=== PATIENT | male | born 1990 | race Caucasian/White ===

== ENCOUNTER 2017-02-09 08:41 | Inpatient (IN) | payer BC ==
[~2017-02-09] VITALS: Ht 180.3 cm; Wt 136.1 kg
[2017-02-09] MEDS ORDERED: KETOROLAC 30 MG/ML VIAL (J1885) IV ONE (10:15)
[2017-02-09] MEDS ORDERED: ONDANSETRON 4MG/2ML VIAL (J2405) IV ONE (10:15)
[2017-02-09] MEDS: NS 1,000 ML IV SCH ×2 (10:34→20:06)
[2017-02-09 10:56] LABS: BASO # 0.1 K/mm3 (0.0-0.2); BASO % 0.5 % (0.0-1.0); EOS # 0.1 K/mm3 (0.0-0.50); EOS % 0.7 % (0.0-3.0); LARGE UNSTAINED CELL # 0.2 K/mm3 (0.0-0.4); LARGE UNSTAINED CELL % 1.1 % (0.0-4.0); LYMPH # 2.4 K/mm3 (1.5-6.5); LYMPH % 12.9 % (24.0-44.0); MEAN CORPUSCULAR HGB CONC 33.4 g/dl (32.0-36.5); MEAN CORPUSCULAR VOLUME 89.8 fl (80.0-96.0); MONO # 1.3 K/mm3 (0.0-0.8); MONO % 7.2 % (0.0-5.0); NEUTROPHILS # 14.4 K/mm3 (1.8-7.7); NEUTROPHILS % 77.6 % (36.0-66.0); PLATELET COUNT, AUTOMATED 379 k/mm3 (150-450); RED CELL DISTRIBUTION WIDTH 11.8 % (11.5-14.5); WHITE BLOOD COUNT 18.6 K/mm3 (4.0-10.0)
[2017-02-09 11:10] LABS: INR 1.11
[2017-02-09] MEDS ORDERED: PIPERACILLIN/TAZOBACTAM SOD 3.375 GM in D5W MINI-BAG PLUS 50 ML IV ONE (11:15)
[2017-02-09 11:20] LABS: ALBUMIN 3.4 GM/DL (3.2-5.2); ALBUMIN/GLOBULIN RATIO 1.03 (1.00-1.93); ALKALINE PHOSPHATASE 83 U/L (45-117); ALT/SGPT 86 U/L (12-78); ANION GAP 6 MEQ/L (8-16); AST/SGOT 30 U/L (15-37); BILIRUBIN,DIRECT 0.3 MG/DL (0.0-0.2); BILIRUBIN,TOTAL 0.8 MG/DL (0.2-1.0); BLOOD UREA NITROGEN 8 MG/DL (7-18); CALCIUM LEVEL 8.6 MG/DL (8.5-10.1); CARBON DIOXIDE LEVEL 28 MEQ/L (21-32); CHLORIDE LEVEL 104 MEQ/L (98-107); CREATININE FOR GFR 0.91 MG/DL (0.70-1.30); GLOMERULAR FILTRATION RATE > 60.0 (>60); GLUCOSE, FASTING 89 MG/DL (70-105); POTASSIUM SERUM 3.9 MEQ/L (3.5-5.1); SODIUM LEVEL 138 MEQ/L (136-145); TOTAL PROTEIN 6.7 GM/DL (6.4-8.2)
[2017-02-09] MEDS ORDERED: PROA1AER INH (11:27)
--- NOTE | 2017-02-09 11:30 | REP ---
REASON: Renal colic. COMPARISON: None. The lung bases are clear. Limited evaluation of the solid intra-abdominal organs and gallbladder show no gross abnormalities. Limited evaluation of the pancreas, adrenal glands, and kidneys show no gross abnormalities. There is no nephroureterolithiasis, hydronephrosis, or hydroureter. There are no urinary bladder calcifications. There is extensive fatty infiltration in the right lower quadrant extending into the right hemipelvis surrounding the cecum and particularly with abnormal thickening of the terminal ileum and fatty infiltration surrounding that bowel loop. This is all very difficult to evaluate without the administration of intravenous and oral bowel preparatory contrast agents. There are multiple borderline lymph nodes in the right lower quadrant adjacent to the fatty infiltration and bowel thickening. The appendix appears to be abnormally dilated but difficult to evaluate due to the marked conglomerate fatty infiltration in the right lower quadrant. The appendix appears to have a maximal dimension of 2 cm and appears to be blindly ending into a conglomeration of fatty infiltration. There is thickening of the right lateroconal fascia. There is a trace amount of free pelvic fluid likely physiologic. The pelvic bowel loops themselves are unremarkable. Limited evaluation of the abdominal aorta and para-aortic regions show no abnormalities. Bone window technique throughout the examination shows the osseous structures to be within normal limits. IMPRESSION: 1. Abnormal right lower quadrant findings highly suspicious for acute appendicitis but seen with abnormal thickening of the francisco of the terminal ileum and I cannot say which infectious etiology, if both, is the presiding factor. Surgical consultation is recommended. I do not know the patient's white blood cell count or other history. Consider oral bowel preparatory and IV contrast enhanced CT examination of the pelvis including all of the right lower quadrant. 2. If the inciting factor is appendicitis, then it may very well be that it has perforated and walled off. A call was placed to CHARLES Flores, to discuss these findings hoping history he relays to me may help figure out the patient's presiding disease process. Signed by Dima Orozco DO 02/09/2017 11:51 A
[2017-02-09 21:45] VITALS: BP 121/82
[2017-02-09] MEDS ORDERED: NORCO, ANEXSIA 5/325MG TABLET (HYDROcodone/ACETAMINOPHEN) PO PRN (21:45)
[2017-02-09] MEDS ORDERED: ACETAMINOPHEN TAB 650MG DOSE (2X325MG) PO PRN (21:45)
[2017-02-09] MEDS ORDERED: ONDANSETRON 4MG/2ML VIAL (J2405) IV PRN (21:45)
[2017-02-09] MEDS ORDERED: KETOROLAC 30 MG/ML VIAL (J1885) IV PRN (21:45)
[2017-02-09] MEDS ORDERED: MOM 30ML SUSPENSION UDC PO PRN (21:45)
[2017-02-09] MEDS: SENOKOT S TAB PO SCH (22:31)
[2017-02-09] MEDS: LR 1,000 ML IV SCH (22:31)
[2017-02-09] MEDS: metroNIDAZOLE 500 MG in APPROPRIATE DILUENT 1 EA IV SCH (22:31)
[2017-02-10] MEDS: metroNIDAZOLE 500 MG in APPROPRIATE DILUENT 1 EA IV SCH ×4 (04:45→21:01)
[2017-02-10 04:50] VITALS: BP 120/63
[2017-02-10 06:38] LABS: MEAN CORPUSCULAR HEMOGLOBIN 30.5 pg (27.0-33.0); MEAN CORPUSCULAR HGB CONC 33.7 g/dl (32.0-36.5); MEAN CORPUSCULAR VOLUME 90.5 fl (80.0-96.0); RED CELL DISTRIBUTION WIDTH 11.9 % (11.5-14.5); WHITE BLOOD COUNT 10.4 K/mm3 (4.0-10.0)
[2017-02-10 06:52] LABS: ANION GAP 7 MEQ/L (8-16); BLOOD UREA NITROGEN 9 MG/DL (7-18); CALCIUM LEVEL 8.1 MG/DL (8.5-10.1); CARBON DIOXIDE LEVEL 26 MEQ/L (21-32); CHLORIDE LEVEL 109 MEQ/L (98-107); CREATININE FOR GFR 0.88 MG/DL (0.70-1.30); GLOMERULAR FILTRATION RATE > 60.0 (>60); GLUCOSE, FASTING 89 MG/DL (70-105); POTASSIUM SERUM 4.3 MEQ/L (3.5-5.1); SODIUM LEVEL 142 MEQ/L (136-145)
[2017-02-10 09:15] VITALS: BP 137/61
[2017-02-10] MEDS: SENOKOT S TAB PO SCH ×2 (09:17→21:01)
[2017-02-10] MEDS: LR 1,000 ML IV SCH ×2 (09:17→21:02)
[2017-02-10] MEDS: CIPROFLOXACIN 400 MG in APPROPRIATE DILUENT 1 EA IV SCH ×4 (11:21→22:55)
--- NOTE | 2017-02-10 15:08 | HPE ---
DATE OF ADMISSION: 02/09/2017 CHIEF COMPLAINT: Abdominal pain. HISTORY OF PRESENT ILLNESS: The patient is a 26-year-old male who came in complaining of right-sided abdominal pain and nausea that has been going on for the past 2 weeks. He was seen at an Urgent Care down in [place] three days ago and was advised to be admitted to the hospital. He wanted to come home, so he got a flight and came home last evening and showed up in the emergency room today to be evaluated further for this abdominal pain. He has had fevers at home. Denies any changes in bowel movements. No blood in his stool. No history of pains like this in the past. No recent trauma. No recent travel. He has no previous abdominal surgeries. Occasional nausea. No vomiting. The pain is intermittent. It is not constant. It does come and go. No change in appetite. PAST MEDICAL HISTORY: Negative. PAST SURGICAL HISTORY: Negative. ALLERGIES: None. SOCIAL HISTORY: He does smoke three quarters of a pack a day. Drinks socially. Denies any drug abuse. FAMILY HISTORY: Noncontributory. REVIEW OF SYSTEMS: Pertinent positives and negative in history of present illness (HPI). PHYSICAL EXAMINATION: General: Alert and oriented times three. No acute distress. Vitals: Temperature 98.7, pulse 100, respirations 18, blood pressure 134/63, pulse oximetry 95% on room air. HEENT: Pupils equally round and reactive to light accommodation. Heart: S1, S2 regular rate and rhythm. Lungs clear to auscultation bilaterally. Abdomen: Soft, nontender, nondistended. No signs of the hernias, both inguinal or umbilical. Extremities: No clubbing, cyanosis or edema. LABORATORY DATA: White count 18.6, hemoglobin 14.4, hematocrit 43.2, and platelets 379. Chemistry: Sodium is 138, potassium 3.9 and creatinine 0.91. IMAGING STUDIES: CT of abdomen and pelvis without contrast shows right lower quadrant findings suspicious for acute appendicitis, but seen with abnormal thickening of the francisco of the terminal ileum. Cannot determine whether this is infectious etiology or both is the presiding factor. Surgical consult is recommended. If the inciting factor is appendicitis, then it may very well be that it is perforated and walled off. ASSESSMENT/PLAN: The patient is 26-year-old male with 2-week history of intermittent right lower quadrant pain presenting with CT findings suspicious for terminal ileitis, possible appendicitis and possible perforated appendix. At this time, recommendation is to attempt medical management and avoid surgery. I explained to him that surgical intervention at this time due to the terminal ileitis and inflammation around the cecum would likely be either a diagnostic laparoscopy with drain placement versus a right hemicolectomy due to all the extensive inflammation. Therefore, our plan is to treat medically with IV fluids and IV antibiotics. He can eat regular food and ambulate as tolerated. As long as he is afebrile for 24-48 hours and white count returns to normal, he can be discharged home with by mouth antibiotics in about two days. However, if his white count remains elevated or he develops fevers, then he may require CT with contrast and possible IR drain placement if needed.
[2017-02-10 16:15] VITALS: BP 136/63
[2017-02-10 20:00] VITALS: BP 136/65
[2017-02-11 04:00] VITALS: BP 90/44
[2017-02-11] MEDS: metroNIDAZOLE 500 MG in APPROPRIATE DILUENT 1 EA IV SCH ×2 (04:07→09:48)
[2017-02-11 06:54] LABS: MEAN CORPUSCULAR HGB CONC 32.6 g/dl (32.0-36.5); MEAN CORPUSCULAR VOLUME 92.1 fl (80.0-96.0); RED CELL DISTRIBUTION WIDTH 11.9 % (11.5-14.5); WHITE BLOOD COUNT 8.4 K/mm3 (4.0-10.0)
[2017-02-11 07:10] LABS: ANION GAP 4 MEQ/L (8-16); BLOOD UREA NITROGEN 7 MG/DL (7-18); CALCIUM LEVEL 8.9 MG/DL (8.5-10.1); CARBON DIOXIDE LEVEL 31 MEQ/L (21-32); CHLORIDE LEVEL 110 MEQ/L (98-107); CREATININE FOR GFR 0.87 MG/DL (0.70-1.30); GLOMERULAR FILTRATION RATE > 60.0 (>60); GLUCOSE, FASTING 97 MG/DL (70-105); POTASSIUM SERUM 4.3 MEQ/L (3.5-5.1); SODIUM LEVEL 145 MEQ/L (136-145)
[2017-02-11] MEDS: LR 1,000 ML IV SCH (07:14)
[2017-02-11 08:30] VITALS: BP 122/63
[2017-02-11] MEDS: SENOKOT S TAB PO SCH (09:48)
[2017-02-11] MEDS ORDERED: CIPR500T89 PO (10:38)
[2017-02-11] MEDS ORDERED: FLAG500T PO (10:38)
== END 2017-02-11 11:10 | disposition home or self-care (01) | DRG 245 ==
LOC: M ED 10:08 → M ED INP 15:55 → M PED 21:30 → UNDODISIN 02-11 11:10
PROVIDERS: ADMIT Surgery; ATTEND Surgery
DX: K50.00 Crohn's disease of small intestine without complications (principal); F17.210 Nicotine dependence, cigarettes, uncomplicated; K37 Unspecified appendicitis